=== PATIENT | male | born 1985 | race Caucasian/White ===

== ENCOUNTER 2020-09-12 05:07 | Emergency (ER) | payer BC ==
[2020-09-12 05:20] VITALS: BP 143/89; PULSE 97
--- NOTE | 2020-09-12 05:26 | EDM.PDOC ---
ED HPI GENERAL MEDICAL PROBLEM - General Chief Complaint: ENT Problem Stated Complaint: throat pain neck ears and face Time Seen by Provider: 09/12/20 05:20 - History of Present Illness INITIAL COMMENTS - FREE TEXT/NARRATIVE: 35-year-old male presents to the emergency room with facial swelling and a very sore throat. This has been coming on for about the last day and a half or so however this last evening it has been very uncomfortable and difficult for him to swallow. The pain radiates up into his right ear. He has felt a little warm but is not aware of any fevers. He has had no other symptoms associated with this. He has had no significant nasal congestion or sinus pressure. Throat Pain Score (Numeric/FACES): 10 - Related Data Allergies Allergy/AdvReac Type Severity Reaction Status Date / Time lindlul Allergy Seizure Verified 09/12/20 05:17 Home Meds: Home Meds Cefdinir [Omnicef] 300 mg PO BID #18 cap 09/12/20 [Rx] Past Medical History - Past Health History Medical/Surgical History: Denies Medical/Surgical History ED ROS GENERAL - Review of Systems Review Of Systems: See Below Constitutional: Reports: No Symptoms HEENT: Reports: Throat Pain Respiratory: Reports: No Symptoms Cardiovascular: Reports: No Symptoms Endocrine: Reports: No Symptoms GI/Abdominal: Reports: No Symptoms : Reports: No Symptoms Musculoskeletal: Reports: No Symptoms Skin: Reports: No Symptoms Neurological: Reports: No Symptoms ED EXAM, GENERAL - Physical Exam Exam: See Below Exam Limited By: No Limitations General Appearance: Alert, Moderate Distress (From the discomfort) Ears: Normal External Exam, Normal Canal, Hearing Grossly Normal, Normal TMs Nose: Normal Inspection, Normal Mucosa, No Blood Throat/Mouth: Other (Very difficult to examine but his right tonsil looks either enlarged or has pressure from behind it) Head: Other (Mild right facial swelling) Neck: Supple, Lymphadenopathy (R), Other (Marked tenderness and discomfort in the right neck especially posterior to the sternocleidomastoid) Respiratory/Chest: No Respiratory Distress, Lungs Clear, Normal Breath Sounds Cardiovascular: Regular Rate, Rhythm, No Edema, No Murmur Course - Vital Signs Last Recorded V/S: Last Vital Signs Temp 37.1 C 09/12/20 05:17 Pulse 97 09/12/20 05:17 Resp 15 09/12/20 05:17 BP 143/89 H 09/12/20 05:17 Pulse Ox 98 09/12/20 05:17 - Orders/Labs/Meds Orders: Active Orders 24 hr Category Date Time Status Soft Tissue Neck w Cont [CT] Stat Exams 09/12/20 05:44 Taken cefTRIAXone [Rocephin] 2 gm Med 09/12/20 06:45 Active Sodium Chloride 0.9% [Normal Saline] 100 ml IV Q24H Medication Orders Ceftriaxone Sodium 2 gm/ (Sodium Chloride) 100 mls @ 200 mls/hr IV Q24H KIERRA Last Admin: 09/12/20 06:53 Dose: 200 mls/hr Documented by: ANDRIY Labs: Laboratory Tests 09/12/20 09/12/20 Range/Units 05:52 05:52 WBC 22.39 H (4.23-9.07) K/mm3 RBC 4.39 L (4.63-6.08) M/mm3 Hgb 15.2 (13.7-17.5) gm/dl Hct 44.2 (40.1-51.0) % MCV 100.7 H (79.0-92.2) fl MCH 34.6 H (25.7-32.2) pg MCHC 34.4 (32.2-35.5) g/dl RDW Std Deviation 44.9 H (35.1-43.9) fL Plt Count 248 (163-337) K/mm3 MPV 9.4 (9.4-12.3) fl Neut % (Auto) 82.5 H (34.0-67.9) % Lymph % (Auto) 9.7 L (21.8-53.1) % [place] % (Auto) 7.2 (5.3-12.2) % Eos % (Auto) 0.1 L (0.8-7.0) Baso % (Auto) 0.1 (0.1-1.2) % Neut # (Auto) 18.45 H (1.78-5.38) K/mm3 Lymph # (Auto) 2.17 (1.32-3.57) K/mm3 [place] # (Auto) 1.62 H (0.30-0.82) K/mm3 Eos # (Auto) 0.03 L (0.04-0.54) K/mm3 Baso # (Auto) 0.02 (0.01-0.08) K/mm3 Manual Slide Review Abnormal smear Sodium 138 (136-145) mEq/L Potassium 4.3 (3.5-5.1) mEq/L Chloride 102 (98-107) mEq/L Carbon Dioxide 25 (21-32) mEq/L Anion Gap 15.3 H (5-15) BUN 11 (7-18) mg/dL Creatinine 1.3 (0.7-1.3) mg/dL Est Cr Clr Drug Dosing 78.56 mL/min Estimated GFR (MDRD) > 60 (>60) mL/min BUN/Creatinine Ratio 8.5 L (14-18) Glucose 138 H (70-99) mg/dL Calcium 8.7 (8.5-10.1) mg/dL Total Bilirubin 0.7 (0.2-1.0) mg/dL AST 55 H (15-37) U/L ALT 85 H (16-63) U/L Alkaline Phosphatase 130 H (46-116) U/L Total Protein 7.7 (6.4-8.2) g/dl Albumin 3.8 (3.4-5.0) g/dl Globulin 3.9 gm/dL Albumin/Globulin Ratio 1.0 (1-2) Meds: Medications Generic Name Dose Route Start Last Admin Trade Name Harshadq PRN Reason Stop Dose Admin Ceftriaxone Sodium 2 gm/ 100 mls @ 200 mls/hr 09/12/20 06:45 09/12/20 06:53 Sodium Chloride IV 200 mls/hr Q24H KIERRA Administration Discontinued Medications Generic Name Dose Route Start Last Admin Trade Name Renée PRN Reason Stop Dose Admin Dexamethasone 12 mg 09/12/20 07:10 09/12/20 07:15 Dexamethasone 4 Mg/Ml 5 Ml Mdv IV 09/12/20 07:11 12 mg ONETIME ONE Administration Hydromorphone HCl 0.5 mg 09/12/20 05:45 09/12/20 05:52 Hydromorphone 0.5 Mg/0.5 Ml Syringe IVPUSH 09/12/20 05:46 0.5 mg ONETIME ONE Administration - Re-Assessments/Exams Free Text/Narrative Re-Assessment/Exam: 09/12/20 07:32 It was difficult to get a good view of the right tonsil because the patient's discomfort so went ahead and ordered a CT this shows the large swollen tonsil no peritonsillar abscess or other abscesses. The patient's white count was over 22,000. Given 2 g of Rocephin IV and will start Omnicef that he will start tomorrow. Departure - Departure Time of Disposition: 07:36 Disposition: Home, Self-Care 01 Clinical Impression: Tonsillitis - Discharge Information Referrals: PCP,None [Primary Care Provider] - Forms: ED Department Discharge Additional Instructions: Return to the emergency room with any questions problems or worsening symptoms. You have been started on 2 medications the first 1 is an antibiotic you will start this tomorrow morning take 1 twice daily until all gone the name of this is Omnicef the prescription for this is been sent electronically to [facility] you may pick that up between noon and 4:00 today. You have been given [place], hydrocodone, #20 take 1 or 2 every 4-6 hours as needed for pain do not drive or return to work within 12 hours of taking this medication. Follow-up in the hospital clinic on Sunday or for recheck if needed. Sepsis Event Note (ED) - Focused Exam Vital Signs: Vital Signs Temp Pulse Resp BP Pulse Ox 09/12/20 05:17 37.1 C 97 15 143/89 H 98 - My Orders Last 24 Hours: My Active Orders 09/12/20 05:44 Soft Tissue Neck w Cont [CT] Stat 09/12/20 06:45 cefTRIAXone [Rocephin] 2 gm Sodium Chloride 0.9% [Normal Saline] 100 ml IV Q24H - Assessment/Plan Last 24 Hours: My Active Orders 09/12/20 05:44 Soft Tissue Neck w Cont [CT] Stat 09/12/20 06:45 cefTRIAXone [Rocephin] 2 gm Sodium Chloride 0.9% [Normal Saline] 100 ml IV Q24H
[2020-09-12] MEDS ORDERED: HYDROmorphone 0.5 MG/0.5 ML Syringe IVPUSH ONE (05:45)
[2020-09-12] MEDS ORDERED: cefTRIAXone 2 GM in Sodium Chloride 0.9% 100 ML IV SCH (06:45)
[2020-09-12] MEDS ORDERED: Dexamethasone 4 MG/ML 5 ML MDV IV ONE (07:10)
[2020-09-12] MEDS ORDERED: Acetaminophen/HYDROcodone 108-2.5 MG/5 ML Soln 15 ML UD Cup PO ONE (07:25)
--- NOTE | 2020-09-12 18:25 | CT ---
CT neck Technique: Multiple axial sections were obtained through the neck. Intravenous contrast was utilized. Reconstructed coronal and sagittal images were also obtained. Comparison: No prior neck imaging is available. Findings: Enlarged right tonsil is seen as compared to the left side which shows slight low density but no findings of parapharyngeal abscess. Other portions of the parapharyngeal space show no discrete abnormality. Parotid salivary and submandibular salivary glands are normal. Small scattered lymph nodes within the neck which are believed to be within normal limits. Bone window settings were reviewed which show minimal degenerative change within the lower cervical spine. Impression: 1. Slightly enlarged right-sided tonsil. 2. Nothing acute is otherwise seen on CT study of the neck. Diagnostic code #2 I agree with preliminary report from [facility], finalized on 09/12/20, 7:34 AM CDT, code 1
== END 2020-09-12 08:04 | disposition home or self-care (01) ==
LOC: JD.ED 05:07
DX: J03.90 Acute tonsillitis, unspecified (principal); Z91.048 Other nonmedicinal substance allergy status
CPT/HCPCS: 36415; 70491; 70491-26; 80053; 85025; 96365; 96375; 99283; 99284-25; A9270-GY; J0696; J1100; J1170

== ENCOUNTER 2020-09-13 14:55 | Emergency (ER) | payer BC ==
[2020-09-13 15:13] VITALS: PULSE 96
[2020-09-13] MEDS ORDERED: Sodium Chloride 0.9% 10 ML Syringe FLUSH PRN (15:16)
[2020-09-13] MEDS ORDERED: Ketorolac 30 MG/ML SDV IVPUSH ONE (15:57)
[2020-09-13] MEDS ORDERED: methylPREDNISolone Sodium Succinate 125 MG/2 ML SDV IVPUSH ONE (15:57)
[2020-09-13] MEDS ORDERED: HYDROmorphone 0.5 MG/0.5 ML Syringe IVPUSH ONE ×3 (15:57→17:36)
[2020-09-13] MEDS ORDERED: Sodium Chloride 0.9% 1,000 ML IV STA (16:00)
--- NOTE | 2020-09-13 16:15 | EDM.PDOC ---
ED HPI GENERAL MEDICAL PROBLEM - General Chief Complaint: ENT Problem Stated Complaint: SORE THROAT NOT BETTER Time Seen by Provider: 09/13/20 15:14 Source of Information: Reports: Patient, RN Notes Reviewed History Limitations: Reports: No Limitations - History of Present Illness INITIAL COMMENTS - FREE TEXT/NARRATIVE: Patient is a 35-year-old male presenting to the emergency department with complaints of his sore throat not getting better. He was seen in this emergency department yesterday for throat pain. Work-up included blood work and a soft tissue neck CT. Results of the work-up showed elevated white blood cells. There is no evidence of peritonsillar abscess on CT. Patient received IV Rocephin, dexamethasone, and hydrocodone. He was sent home on Omnicef which she states he has taken 2 doses of so far today. States his pain was initially in the right side but now it is on the left side as well. Complains of pain in his neck as well as in his ears. Is increasingly painful when he swallows. He was sent home with a prescription for hydrocodone. States he was taking them 2 at a time every 4 hours and is currently out of them. These offered little to no relief. Denies any shortness of breath. Throat Pain Score (Numeric/FACES): 10 - Related Data Allergies Allergy/AdvReac Type Severity Reaction Status Date / Time basil AdvReac Seizure Verified 09/14/20 15:50 Home Meds: Home Meds Lidocaine 2% [Xylocaine 2% Viscous] 15 ml .XX Q6H PRN #1 bottle 09/13/20 [Rx] Amoxicillin/Potassium Clav [Amox-Clav 875-125 mg Tablet] 1 tab PO BID 09/14/20 [History] oxyCODONE HCl/Acetaminophen [Oxycodone-Acetaminophen 5-325] 1 tab PO ASDIRECTED 09/14/20 [History] Past Medical History - Past Health History Medical/Surgical History: Denies Medical/Surgical History Endocrine/Metabolic History: Reports: Obesity/BMI 30+ - Past Surgical History Neurological Surgical History: Reports: Lumbar Spine Other Musculoskeletal Surgeries/Procedures:: back surgery 02/2020 Social & Family History - Tobacco Use Tobacco Use Status *Q: Current Every Day Tobacco User Years of Tobacco use: 14 Packs/Tins Daily: 0.5 - Caffeine Use Caffeine Use: Reports: Coffee, Tea - Recreational Drug Use Recreational Drug Use: Yes Drug Use in Last 12 Months: Yes Recreational Drug Type: Reports: Marijuana/Hashish Recreational Drug Use Frequency: Socially ED ROS ENT - Review of Systems Review Of Systems: See Below Constitutional: Denies: Fever, Chills, Weakness HEENT: Reports: No Symptoms, Throat Pain Respiratory: Reports: No Symptoms. Denies: Shortness of Breath, Cough Cardiovascular: Reports: Chest Pain. Denies: Lightheadedness, Palpitations, Syncope Endocrine: Reports: No Symptoms GI/Abdominal: Reports: No Symptoms. Denies: Abdominal Pain, Diarrhea, Nausea, Vomiting : Reports: No Symptoms Musculoskeletal: Reports: Neck Pain Skin: Reports: No Symptoms Neurological: Reports: No Symptoms Psychiatric: Reports: No Symptoms Hematologic/Lymphatic: Reports: No Symptoms Immunologic: Reports: No Symptoms ED EXAM, ENT - Physical Exam Exam: See Below Exam Limited By: No Limitations General Appearance: Alert, Mild Distress Mouth/Throat: Normal Gums, Normal Lips, Pharyngeal Erythema, Tonsillar Erythema, Tonsillar Swelling. No: Hoarse Voice, Muffled Voice, Peritonsillar Mass, Tonsillar Exudates, Uvular Deviation Head: Atraumatic, Normocephalic Neck: Lymphadenopathy (L), Lymphadenopathy (R), Other (tenderness to the cervical lymph nodes) Respiratory/Chest: No Respiratory Distress, Lungs Clear, Normal Breath Sounds, No Accessory Muscle Use, Chest Non-Tender Cardiovascular: Normal Peripheral Pulses, Regular Rate, Rhythm, No Edema, No Gallop, No JVD, No Murmur, No Rub GI/Abdominal: Normal Bowel Sounds, Soft, Non-Tender, No Organomegaly, No Distention, No Abnormal Bruit, No Mass Neurological: Alert, Oriented, CN II-XII Intact, Normal Cognition, Normal Gait, Normal Reflexes, No Motor/Sensory Deficits Psychiatric: Normal Affect, Normal Mood Skin: Warm, Dry, Intact, Normal Color, No Rash #1 Interpretation EKG Date: 09/13/20 Time: 17:36 Rhythm: NSR Rate (Beats/Min): 99 [place]: Normal P-Wave: Present QRS: Normal ST-T: Normal QT: Normal Course - Vital Signs Last Recorded V/S: Last Vital Signs Temp 99 F 09/13/20 15:10 Pulse 96 09/13/20 15:10 Resp 18 09/13/20 15:10 BP 108/63 09/13/20 15:10 Pulse Ox 98 09/13/20 15:10 - Orders/Labs/Meds Labs: Laboratory Tests 09/13/20 09/13/20 09/13/20 Range/Units 15:56 15:56 15:56 WBC 21.91 H (4.23-9.07) K/mm3 RBC 4.21 L (4.63-6.08) M/mm3 Hgb 14.5 (13.7-17.5) gm/dl Hct 43.4 (40.1-51.0) % MCV 103.1 H (79.0-92.2) fl MCH 34.4 H (25.7-32.2) pg MCHC 33.4 (32.2-35.5) g/dl RDW Std Deviation 47.9 H (35.1-43.9) fL Plt Count 224 (163-337) K/mm3 MPV 10.2 (9.4-12.3) fl Neut % (Auto) 84.9 H (34.0-67.9) % Lymph % (Auto) 8.4 L (21.8-53.1) % [place] % (Auto) 6.0 (5.3-12.2) % Eos % (Auto) 0 L (0.8-7.0) Baso % (Auto) 0.0 L (0.1-1.2) % Neut # (Auto) 18.58 H (1.78-5.38) K/mm3 Lymph # (Auto) 1.84 (1.32-3.57) K/mm3 [place] # (Auto) 1.31 H (0.30-0.82) K/mm3 Eos # (Auto) 0.01 L (0.04-0.54) K/mm3 Baso # (Auto) 0.01 (0.01-0.08) K/mm3 Manual Slide Review Abnormal smear Sodium 137 (136-145) mEq/L Potassium 3.7 (3.5-5.1) mEq/L Chloride 100 (98-107) mEq/L Carbon Dioxide 25 (21-32) mEq/L Anion Gap 15.7 H (5-15) BUN 20 H (7-18) mg/dL Creatinine 1.3 (0.7-1.3) mg/dL Est Cr Clr Drug Dosing 81.11 mL/min Estimated GFR (MDRD) > 60 (>60) mL/min BUN/Creatinine Ratio 15.4 (14-18) Glucose 106 H (70-99) mg/dL Calcium 8.7 (8.5-10.1) mg/dL Total Bilirubin 0.6 (0.2-1.0) mg/dL AST 21 (15-37) U/L ALT 51 (16-63) U/L Alkaline Phosphatase 102 (46-116) U/L Troponin I < 0.017 (0.00-0.056) ng/mL C-Reactive Protein 18.8 H* (<1.0) mg/dL Total Protein 8.0 (6.4-8.2) g/dl Albumin 3.7 (3.4-5.0) g/dl Globulin 4.3 gm/dL Albumin/Globulin Ratio 0.9 L (1-2) Meds: Medications Discontinued Medications Generic Name Dose Route Start Last Admin Trade Name Freq PRN Reason Stop Dose Admin Hydromorphone HCl 0.5 mg 09/13/20 15:57 09/13/20 16:14 Hydromorphone 0.5 Mg/0.5 Ml Syringe IVPUSH 09/13/20 15:58 0.5 mg ONETIME ONE Administration Hydromorphone HCl 0.5 mg 09/13/20 16:56 09/13/20 16:59 Hydromorphone 0.5 Mg/0.5 Ml Syringe IVPUSH 09/13/20 16:57 0.5 mg ONETIME ONE Administration Hydromorphone HCl 0.5 mg 09/13/20 17:36 09/13/20 17:41 Hydromorphone 0.5 Mg/0.5 Ml Syringe IVPUSH 09/13/20 17:37 0.5 mg ONETIME ONE Administration Sodium Chloride 1,000 mls @ 999 mls/hr 09/13/20 16:00 09/13/20 16:14 Normal Saline IV 09/13/20 17:00 999 mls/hr NOW STA Administration Ketorolac Tromethamine 30 mg 09/13/20 15:57 09/13/20 16:05 Ketorolac 30 Mg/Ml Sdv IVPUSH 09/13/20 15:58 30 mg ONETIME ONE Administration Lidocaine HCl 15 ml 09/13/20 17:33 09/13/20 17:41 Lidocaine 2% Viscous Solution 15 Ml Cup PO 09/13/20 17:34 15 ml ONETIME ONE Administration Lidocaine HCl 30 ml 09/13/20 18:05 09/13/20 18:34 Lidocaine 2% Viscous Solution 15 Ml Cup PO 09/13/20 18:06 30 ml ONETIME ONE Administration Methylprednisolone Sodium Succinate 125 mg 09/13/20 15:57 09/13/20 16:05 Methylprednisolone Sodium Succinate 125 Mg/2 Ml Sdv IVPUSH 09/13/20 15:58 125 mg ONETIME ONE Administration Sodium Chloride 10 ml 09/13/20 15:16 09/13/20 16:05 Sodium Chloride 0.9% 10 Ml Syringe FLUSH 10 ml ASDIRECTED PRN Administration Keep Vein Open - Re-Assessments/Exams Free Text/Narrative Re-Assessment/Exam: Patient is a 35-year-old male presenting to the emergency department with complaints of ongoing throat pain, neck pain, and headache. He was seen in this ER yesterday and diagnosed with tonsillitis. He did have a CT neck soft tissue completed which showed no evidence of peritonsillar abscess. I have ordered blood work. We will give him a 1 L bolus of normal saline, Toradol, Dilaudid, and Solu-Medrol. 09/13/20 1730 Hematology significant for WBC 21.91, anion gap 15.7, BUN 20, CRP 18.8. WBC is down slightly from yesterday even with him receiving steroids yesterday. He is still having discomfort. I have ordered additional dose of Dilaudid as well as viscous lidocaine. Patient discussed that he has been having chest discomfort since about 3:00 this morning. I added on a troponin and EKG. 09/13/20 18:13 Patient is feeling much better after lidocaine and Dilaudid. Troponin is undetectable. EKG shows normal sinus rhythm with no ischemia. He has taken his 2 doses of Omnicef for today. Discussed that he needs to continue these every 12 hours. I will provide him in some a prescription for Percocet for discomfort for the next couple days. I also recommend taking ibuprofen 800 mg every 6 hours for the next 24 hours. I am going to send him home with 2 containers of viscous lidocaine to use. I will send a prescription for viscous lidocaine to his pharmacy so he may pick it up tomorrow. I discussed foods that would be soothing to the throat and foods to avoid. Discussed that he should begin to see improvement over the next 24 hours. If symptoms were to worsen, he should return to ER. He may also follow-up with his primary care provider tomorrow. He verbalized understanding of this. Discharge instructions as documented. Departure - Departure Time of Disposition: 18:15 Disposition: Home, Self-Care 01 Condition: Good Clinical Impression: Tonsillitis - Discharge Information *PRESCRIPTION DRUG MONITORING PROGRAM REVIEWED*: Yes *COPY OF PRESCRIPTION DRUG MONITORING REPORT IN PATIENT JADE: No Prescriptions: Lidocaine 2% [Xylocaine 2% Viscous] 15 ml .XX Q6H PRN #1 bottle PRN Reason: throat pain Instructions: Tonsillitis, [id number] Referrals: Corey Saha MD [Primary Care Provider] - Forms: ED Department Discharge Additional Instructions: Follow the below treatment plan. 1. Ibuprofen 800 mg every 6 hours for the next 24 hours. 2. Continue cefdinir as previously prescribed. 3. Percocet 1-2 tabs every 4 hours as needed for discomfort. 4. Viscous lidocaine, 15 mils, every 6 hours as needed for throat pain. Gargle and spit. 5. Cold foods until symptoms improve. Avoid dairy products, spicy, or acidic foods. If your symptoms should worsen, please not hesitate to return to the ER. If symptoms do not resolve over the next few days, recommend follow-up with your primary care provider. Sepsis Event Note (ED) - Evaluation Sepsis Screening Result: No Definite Risk
[2020-09-13] MEDS ORDERED: Lidocaine 2% Viscous Solution 15 ML Cup PO ONE ×2 (17:33→18:05)
[2020-09-13 18:29] VITALS: BP 108/63
== END 2020-09-13 18:37 | disposition home or self-care (01) ==
LOC: JD.ED 14:55
DX: J03.90 Acute tonsillitis, unspecified (principal); E66.9 Obesity, unspecified; Z68.30 Body mass index [BMI] 30.0-30.9, adult; Z72.0 Tobacco use
CPT/HCPCS: 36415; 80053; 84484; 85025; 86140; 93005; 96374; 96375; 96376; 99284; A9270; J1170; J1885; J2930; J7030; 93010; 99283

== ENCOUNTER 2020-09-14 15:28 | Emergency (ER) | payer BC ==
--- NOTE | 2020-09-14 16:45 | EDM.PDOC ---
ED HPI GENERAL MEDICAL PROBLEM - General Chief Complaint: Respiratory Problem Stated Complaint: TROUBLES BREATHING Time Seen by Provider: 09/14/20 16:32 Source of Information: Reports: Patient, Family (spouse) History Limitations: Reports: Other (Muffled voice obvious severe pain. Temperature 37.1 degrees heart rate 92 respiratory rate 22 with O2 sats of 100% BP 05/14/1978) - History of Present Illness INITIAL COMMENTS - FREE TEXT/NARRATIVE: 35-year-old male presents to the ED for the third day in a row with increasing right-sided throat pain. Patient was diagnosed with tonsillitis on Sunday, September 12.. Pain started the day prior. He was acutely febrile at that time. He did have significant swelling of the right peritonsillar area but CT demonstrated a soft tissue inflammation without an abscess. He was treated with 12 mg of dexamethasone and given 2 g of Rocephin IV. He was then started on Omnicef 300 mg twice daily. He returned to the ED yesterday due to increased pain and received a liter of IV fluids.. Initial white count on Sunday 2 days ago was greater than 22,000 with left shift. Yesterday was 21.9. Patient has been using hydrocodone tablets for pain relief. In spite of this pain has increased to the point that he cannot swallow hardly his own saliva. His voice is extremely muffled. He continues to run a low-grade fever. Complaining of sev ere pain bilateral aspect of his neck. Initially it was mostly contained to the right side of his neck and right peritonsillar area. I have looked at the CT scan done 2 days ago and it did reveal some right-sided peritonsillar phlegmon without an abscess. Clinically the patient has a peritonsillar abscess. Currently he has trismus with an ability to only open his mouth 2 cm. Onset: Sudden Onset Date: 09/11/20 (Developed a sore throat on Sunday p.m. me ) Duration: Day(s):, Constant, Getting Worse Location: Reports: Neck (Severe throat pain unable to swallow. Pain worse on the right side of his neck.) Quality: Reports: Ache, Burning, Throbbing Severity: Severe Improves with: Reports: Medication (Pain medication helps a little bit.) Worsens with: Reports: Other (Even attempt to swallow water and saliva) Context: Denies: Activity ( creates severe pain.), Exercise, Lifting, Sick Contact, Trauma, Other Associated Symptoms: Reports: Cough, Fever/Chills, Loss of Appetite, Weakness. Denies: No Other Symptoms, Confusion (Nonproductive), Chest Pain, cough w sputum, Diaphoresis, Headaches, Malaise, Nausea/Vomiting, Rash, Seizure, Sh ortness of Breath, Syncope Treatments CS ASSOCIATE: Reports: Other (see below) (Motrin and hydrocodone 5/325 mg tablets with barely any pain relief.) Bilateral Throat Pain Score (Numeric/FACES): 9 - Related Data Allergies Allergy/AdvReac Type Severity Reaction Status Date / Time lindlul AdvReac Seizure Verified 09/14/20 15:50 Home Meds: Home Meds Lidocaine 2% [Xylocaine 2% Viscous] 15 ml .XX Q6H PRN #1 bottle 09/13/20 [Rx] Amoxicillin/Potassium Clav [Amox-Clav 875-125 mg Tablet] 1 tab PO BID 09/14/20 [History] oxyCODONE HCl/Acetaminophen [Oxycodone-Acetaminophen 5-325] 1 tab PO ASDIRECTED 09/14/20 [History] Past Medical History - Past Health History Medical/Surgical History: Denies Medical/Surgical History Endocrine/Metabolic History: Reports: Obesity/BMI 30+ - Infectious Disease History Infectious Disease History: Reports: Chicken Pox - Past Surgical History Neurological Surgical History: Reports: Lumbar Spine Other Musculoskeletal Surgeries/Procedures:: back surgery 02/2020 Social & Family History - Family History Family Medical History: No Pertinent Family History - Tobacco Use Tobacco Use Status *Q: Current Every Day Tobacco User Years of Tobacco use: 17 Packs/Tins Daily: 0.5 - Caffeine Use Caffeine Use: Reports: Other Other Caffeine Use: occasionally - Recreational Drug Use Recreational Drug Use: No - Living Situation & Occupation Living situation: Reports: Occupation: Employed ED ROS GENERAL - Review of Systems Review Of Systems: See Below Constitutional: Reports: Fever, Chills, Malaise, Weakness, Fatigue, Decreased Appetite HEENT: Reports: Throat Pain, Throat Swelling (Severe throat pain with inability to swallow hardly his own saliva.) Respiratory: Reports: Cough (Mild nonproductive cough he believes its is) Cardiovascular: Reports: No Symptoms ( saliva that is causing him to cough at times.) Endocrine: Reports: No Symptoms GI/Abdominal: Reports: No Symptoms : Reports: No Symptoms Musculoskeletal: Reports: No Symptoms Skin: Reports: No Symptoms Neurological: Reports: No Symptoms Psychiatric: Reports: No Symptoms Hematologic/Lymphatic: Reports: No Symptoms Immunologic: Reports: No Symptoms ED EXAM, GENERAL - Physical Exam Exam: See Below Exam Limited By: Other (Patient appears to be in severe pain. His voice is very muffled.) General Appearance: Severe Distress (Patient is in marked distress and pain.) Eye Exam: Bilateral Eye: Normal Inspection (No scleral icterus no blepharal pallor.), PERRL Ears: Normal TMs Throat/Mouth: Other (Patient has marked trismus only able to open his mouth approximately 2 cm in the midline. He has a fairly large tongue and I could not visualize his right tonsil. There is obvious erythema of the right peritonsillar soft palate.). No: Normal Oropharynx, Normal Voice (Muffled voice.) Head: Atraumatic, Normocephalic Neck: Normal Inspection, Limited Range of Motion (Patient has pain with movement of his neck and her swallowing.), Lymphadenopathy (L) (Mild mild), Lymphadenopathy (R) Respiratory/Chest: Lungs Clear, Normal Breath Sounds, No Accessory Muscle Use, Respiratory Distress (Tachypneic at rest) Cardiovascular: Normal Peripheral Pulses, Regular Rate, Rhythm, No Edema, No Gallop, No Murmur, No Rub Peripheral Pulses: 3+: Carotid (L) (Very tender to palpate carotid arteries.), Carotid (R) GI/Abdominal: Normal Bowel Sounds, Soft, Non-Tender, No Organomegaly, No Mass, Pelvis Stable, Other (No surgical scars.) Back Exam: Normal Inspection, Full Range of Motion. No: CVA Tenderness (L), CVA Tenderness (R) Extremities: Normal Inspection, Normal Range of Motion, Non-Tender, No Pedal Edema Neurological: Alert, Oriented, CN II-XII Intact, Normal Cognition, No Motor/Sensory Deficits Psychiatric: Anxious Skin Exam: Warm, Dry, Intact, Normal Color, No Rash Course - Vital Signs Last Recorded V/S: Last Vital Signs Temp 37.1 C 09/14/20 15:37 Pulse 99 09/14/20 19:15 Resp 20 09/14/20 19:15 BP 117/91 H 09/14/20 19:15 Pulse Ox 98 09/14/20 19:15 - Orders/Labs/Meds Labs: Laboratory Tests 09/14/20 09/14/20 09/14/20 Range/Units 16:55 17:05 17:05 WBC 19.38 H (4.23-9.07) K/mm3 RBC 4.11 L (4.63-6.08) M/mm3 Hgb 14.0 (13.7-17.5) gm/dl Hct 42.9 (40.1-51.0) % MCV 104.4 H (79.0-92.2) fl MCH 34.1 H (25.7-32.2) pg MCHC 32.6 (32.2-35.5) g/dl RDW Std Deviation 49.3 H (35.1-43.9) fL Plt Count 216 (163-337) K/mm3 MPV 10.1 (9.4-12.3) fl Neutrophils % (Manual) 70 H (40-60) % Band Neutrophils % 11 H (0-10) % Lymphocytes % (Manual) 15 L (20-40) % Atypical Lymphs % 0 % Monocytes % (Manual) 4 (2-10) % Eosinophils % (Manual) 0 L (0.8-7.0) % Basophils % (Manual) 0 L (0.2-1.2) Toxic Granulation Few Platelet Estimate Adequate Anisocytosis 1+ slight Macrocytosis 1+ slight RBC Morph Comment Not Reportable Sodium 139 (136-145) mEq/L Potassium 4.0 (3.5-5.1) mEq/L Chloride 101 (98-107) mEq/L Carbon Dioxide 28 (21-32) mEq/L Anion Gap 14.0 (5-15) BUN 24 H (7-18) mg/dL Creatinine 1.3 (0.7-1.3) mg/dL Est Cr Clr Drug Dosing 81.11 mL/min Estimated GFR (MDRD) > 60 (>60) mL/min BUN/Creatinine Ratio 18.5 H (14-18) Glucose 111 H (70-99) mg/dL Lactic Acid (0.4-2.0) mmol/L Calcium 9.0 (8.5-10.1) mg/dL Total Bilirubin 0.6 (0.2-1.0) mg/dL AST 17 (15-37) U/L ALT 41 (16-63) U/L Alkaline Phosphatase 94 (46-116) U/L C-Reactive Protein 32.6 H* (<1.0) mg/dL Total Protein 8.0 (6.4-8.2) g/dl Albumin 3.4 (3.4-5.0) g/dl Globulin 4.6 gm/dL Albumin/Globulin Ratio 0.7 L (1-2) Monoscreen Negative (NEGATIVE) SARS-CoV-2 RNA (DREW) (NEGATIVE) 09/14/20 09/14/20 Range/Units 17:55 18:05 WBC (4.23-9.07) K/mm3 RBC (4.63-6.08) M/mm3 Hgb (13.7-17.5) gm/dl Hct (40.1-51.0) % MCV (79.0-92.2) fl MCH (25.7-32.2) pg MCHC (32.2-35.5) g/dl RDW Std Deviation (35.1-43.9) fL Plt Count (163-337) K/mm3 MPV (9.4-12.3) fl Neutrophils % (Manual) (40-60) % Band Neutrophils % (0-10) % Lymphocytes % (Manual) (20-40) % Atypical Lymphs % % Monocytes % (Manual) (2-10) % Eosinophils % (Manual) (0.8-7.0) % Basophils % (Manual) (0.2-1.2) Toxic Granulation Platelet Estimate Anisocytosis Macrocytosis RBC Morph Comment Sodium (136-145) mEq/L Potassium (3.5-5.1) mEq/L Chloride (98-107) mEq/L Carbon Dioxide (21-32) mEq/L Anion Gap (5-15) BUN (7-18) mg/dL Creatinine (0.7-1.3) mg/dL Est Cr Clr Drug Dosing mL/min Estimated GFR (MDRD) (>60) mL/min BUN/Creatinine Ratio (14-18) Glucose (70-99) mg/dL Lactic Acid 1.8 (0.4-2.0) mmol/L Calcium (8.5-10.1) mg/dL Total Bilirubin (0.2-1.0) mg/dL AST (15-37) U/L ALT (16-63) U/L Alkaline Phosphatase (46-116) U/L C-Reactive Protein (<1.0) mg/dL Total Protein (6.4-8.2) g/dl Albumin (3.4-5.0) g/dl Globulin gm/dL Albumin/Globulin Ratio (1-2) Monoscreen (NEGATIVE) SARS-CoV-2 RNA (DREW) Positive H (NEGATIVE) Meds: Medications Discontinued Medications Generic Name Dose Route Start Last Admin Trade Name Freq PRN Reason Stop Dose Admin Dexamethasone 12 mg 09/14/20 19:29 09/14/20 20:03 Dexamethasone 10 Mg/Ml Sdv IVPUSH 09/14/20 19:30 12 mg ONETIME ONE Administration Hydromorphone HCl 1 mg 09/14/20 16:52 09/14/20 17:39 Hydromorphone 1 Mg/Ml Syringe IVPUSH 09/14/20 16:53 1 mg ONETIME ONE Administration Hydromorphone HCl 1 mg 09/14/20 17:28 09/14/20 19:08 Hydromorphone 1 Mg/Ml Syringe IVPUSH 09/14/20 17:29 1 mg ONETIME ONE Administration Hydromorphone HCl 0.5 mg 09/14/20 18:45 09/14/20 20:03 Hydromorphone 0.5 Mg/0.5 Ml Syringe IVPUSH 09/14/20 18:46 0.5 mg ONETIME ONE Administration Dextrose/Sodium Chloride 1,000 mls @ 999 mls/hr 09/14/20 17:00 09/14/20 17:39 Dextrose 5%-Normal Saline IV 999 mls/hr ASDIRECTED KIERRA Administration Clindamycin Phosphate 900 mg/ 50 mls @ 100 mls/hr 09/14/20 16:52 09/14/20 17:39 Premix IV 09/14/20 17:21 100 mls/hr ONETIME ONE Administration Cefepime HCl 2 gm/ Premix 50 mls @ 100 mls/hr 09/14/20 19:29 09/14/20 20:04 IV 09/14/20 19:58 100 mls/hr ONETIME ONE Administration Iopamidol 100 ml 09/14/20 17:34 06/01/21 18:08 Iopamidol 612 Mg/Ml 100 Ml Bottle IVPUSH 09/14/20 17:35 100 ml ONETIME ONE Administration Metoclopramide HCl 10 mg 09/14/20 16:52 09/14/20 17:39 Metoclopramide 10 Mg/2 Ml Sdv IVPUSH 09/14/20 16:53 10 mg ONETIME ONE Administration Sodium Chloride 10 ml 09/14/20 17:45 09/14/20 18:09 Sodium Chloride 0.9% 10 Ml Syringe FLUSH 10 ml ASDIRECTED KIERRA Administration - Radiology Interpretation Free Text/Narrative:: 35-year-old male presents to the ED with worsening neck pain and inability to swallow even his own saliva today. He states he developed sore throat on September 11. He was seen in the ED in the morning of September 12 and identified to have bilateral follicular tonsillitis worse on the right side as compared to the left. A CT scan --soft tissue of the neck with IV contrast demonstrated a right peritonsillar phlegmon without abscess formation. Patient received 2 g of Rocephin intravenously and hydromorphone 0.5 mg x 3 doses for pain relief and I believe 12 mg of dexamethasone as well. Lab test revealed a markedly elevated white count greater than 22,000 with left shift. Patient was sent home with [place] tablets 5/325 mg strength for pain relief and has been using 2 every 3-4 hours. He was also started on Omnicef 300 mg twice daily. Patient was seen again yesterday in the ED due to increasing pain. White count was greater than 21,000. He received further IV dose of Rocephin 2 g IV and a liter of IV fluids. Advised to continue Omnicef. He was seen by his primary care physician Dr. Saha at the [facility] here in [place] this morning. His antibiotic was switched from Omnicef to Augmentin 875/125 mg twice daily. Patient is only taken 1 of these and barely could get the tablet down due to the size and the pain with swallowing. He comes to the ED now due to inability eat or swallow at all. Clinically the patient has significant trismus and I cannot visualize his tonsils at all. He complains of bilateral neck pain instead of confined to the right side of his neck. He has been holding ice pack to his right lateral neck due to severity of the pain. Clinically the patient has a right peritonsillar abscess. Plan repeat labs. This will include a Monospot. COVID-19 screen as he will likely require incision and drainage of peritonsillar abscess. Will give a dose of clindamycin 900 mg IV. He will be given Dilaudid 1 mg IV for pain relief with Reglan 10 mg IV. Plan will be to repeat soft tissue of the neck with CT scan and IV contrast. - Re-Assessments/Exams Free Text/Narrative Re-Assessment/Exam: 09/14/20 18:10 White count remains elevated at 19.38. Differential pending. Hemoglobin is 14.0 with hematocrit of 42.9. Of note his MCV is elevated at 104. 4. Reason for this is unclear. Platelet count 216,000. Sodium 139 with a potassium of 4.0 chloride 101 with a bicarb of 28. Anion gap is 14.0 BUN is 24 mildly elevated. Creatinine is 1.3. GFR remains greater than 60. BUN/creatinine ratio is 18.5 slightly elevated. Glucose is 111. Calcium is 9.0. Total bilirubin is 0.6 and liver function is otherwise normal. C-reactive protein is markedly elevated at 32.6. Total protein is 8.0 with an albumin fraction of 3.4. Patient is currently over in the CT suite. 09/14/20 18:32 CT soft tissue of the neck has been completed. It reveals marked change is seen from prior CT done 2 days ago. Current study shows a large low- density lesion with in the prevertebral space with craniocaudal measurement of 10.4 cm AP height of 2.5 cm in transverse measurement of 4.6 cm. This is combined with a large prevertebral abscess. There is also small low-density areas within the right peritonsillar region combined with small abscesses. These findings measure approximately 2.1 cm in greatest combined dimension. The hypopharynx is displaced anteriorly because of the prevertebral abscess. Parotid and submandibular salivary glands are within normal limits. Thyroid gland appears within normal limits. There are areas of mildly increased density extending posteriorly around the cervical spine on both sides. Visualized lung apices are clear. 09/14/20 18:39 The differential on the white count is now available. It shows 70% neutrophils and 11% bands cells. Lactic acid is still pending. Monospot is negative. I have discussed the findings with the patient and his . The plan will be to send him to [place] as quickly as possible for ear nose and throat consultation and surgical management of abscess in the retropharyngeal area. 09/14/20 19:15: Of note there was a delay in finding an accepting physician and availability of a bed for this fellow in [place]. In the interim his COVID-19 screen came back positive. His preference was to go to [facility] but they had no Covid 19 beds available and there is a high chance this patient may be intubated for a lengthy period of time and they do not have an ICU bed. I therefore contacted [facility] in [place] and through the 1 call nurse I was able to speak with Dr. Lozano--ear nose and throat surgeon after speaking with ER physician at that facility. Patient needs to be seen emergently with a view to going directly to the operating room. Patient will be transferred to that facility per helicopter as there is no ground ambulance availability at this time. Helicopter was on his way prior to finding accepting physician in bed availability. Dr. Sanders is asked me to give him repeat dexamethasone and 12 mg IV was ordered. He was also started on cefepime 2 g IV. This is in addition to initial dose of clindamycin 900 mg IV. Departure - Departure Time of Disposition: 20:30 Disposition: DC/Tfer to Acute Hospital 02 Condition: Serious Clinical Impression: Retropharyngeal and parapharyngeal abscess, COVID-19 determined by clinical diagnostic criteria - Discharge Information *PRESCRIPTION DRUG MONITORING PROGRAM REVIEWED*: Not Applicable *COPY OF PRESCRIPTION DRUG MONITORING REPORT IN PATIENT JADE: Not Applicable Referrals: Corey Saha MD [Primary Care Provider] - Forms: ED Department Discharge Additional Instructions: Patient was sent to [facility] in [place] per helicopter service to due to emergent need for ENT consultation and surgical management of parapharyngeal abscess. Patient was identified to be COVID-19 positive as well. No local ambulance service is available and [facility] was not available to provide transport. Sepsis Event Note (ED) - Evaluation Sepsis Screening Result: Possible Sepsis Risk - Focused Exam Vital Signs: Vital Signs Temp Pulse Resp BP Pulse Ox 09/14/20 19:15 99 20 117/91 H 98 09/14/20 15:37 37.1 C 92 22 H 129/78 96
[2020-09-14] MEDS ORDERED: Clindamycin Phosphate in D5W 900 MG in Premix Bag 1 BAG IV ONE ×2 (16:52)
[2020-09-14] MEDS ORDERED: HYDROmorphone 1 MG/ML Syringe IVPUSH ONE ×2 (16:52→17:28)
[2020-09-14] MEDS ORDERED: Metoclopramide 10 MG/2 ML SDV IVPUSH ONE (16:52)
[2020-09-14] MEDS ORDERED: Dextrose 5%-0.9% NaCl 1,000 ML IV SCH (17:00)
[2020-09-14] MEDS ORDERED: Iopamidol 612 MG/ML 100 ML Bottle IVPUSH ONE (17:34)
[2020-09-14] MEDS: Sodium Chloride 0.9% 10 ML Syringe FLUSH SCH ×2 (17:40→18:09)
--- NOTE | 2020-09-14 18:27 | CT ---
CT neck Technique: Multiple axial sections were obtained from above the external auditory canals inferiorly to the lung apices. Intravenous contrast was utilized. Reconstructed coronal and sagittal images were obtained. Comparison: Prior CT neck study of 09/12/20. Findings: Marked change is seen from prior CT exam. Current study shows large low density lesion within the prevertebral space with craniocaudal measurement of 10.4 cm, AP height of 2.5 cm and transverse measurement of 4.6 cm. This is compatible with large prevertebral abscess. There is also small low density areas within the right peritonsillar region compatible with small abscesses. These findings measure approximately 2.1 cm in greatest combined dimension. Hypopharynx is displaced anteriorly because of the prevertebral abscess. Parotid and submandibular salivary glands are within normal limits. Thyroid gland appears within normal limits. There are areas of mildly increased density extending posterior to the prior spinal regions on both sides. Visualized lung apices are clear. Impression: 1. Findings compatible with large prevertebral abscess with measurements of 10.4 x 2.5 x 4.6 cm. 2. Small areas of abscess are noted within the right peritonsillar region with greatest length of about 2.1 cm. 3. No other acute abnormality is seen. These findings represent a significant interval change from prior CT exam. Diagnostic code #5
[2020-09-14] MEDS ORDERED: HYDROmorphone 0.5 MG/0.5 ML Syringe IVPUSH ONE (18:45)
[2020-09-14 19:16] VITALS: BP 117/91; PULSE 99
[2020-09-14] MEDS ORDERED: Cefepime 2 GM in Premix Bag 1 BAG IV ONE (19:29)
[2020-09-14] MEDS ORDERED: Dexamethasone 10 MG/ML SDV IVPUSH ONE (19:29)
== END 2020-09-14 20:12 ==
LOC: JD.ED 15:28
DX: U07.1 COVID-19 (principal); J39.0 Retropharyngeal and parapharyngeal abscess; Z72.0 Tobacco use; Z88.8 Allergy status to other drugs, medicaments and biological substances
CPT/HCPCS: 36415; 70491; 80053; 83605; 85007; 85027; 86140; 86308; 87635; 96365; 96375; 96376; 99285; J0692; J1100; J1170; J2765; J3490; J7042; Q9967; U0002